=== PATIENT | female | born 1935 | race Caucasian/White ===

== ENCOUNTER 2017-06-06 15:36 | Inpatient (IN) | payer MEDICARE ==
[~2017-06-06] VITALS: Ht 157.5 cm; Wt 74.0 kg
[2017-06-06 17:06] LABS: CALCIUM 8.6 mg/dL (8.5-10.1); CHLORIDE SERUM 100 mmol/L (98-107); CREATININE SERUM 1.1 mg/dL (0.6-1.0); GLUCOSE SERUM 128 mg/dL (74-106); POTASSIUM SERUM 3.5 mmol/L (3.5-5.1); SODIUM SERUM 138 mmol/L (136-145)
[2017-06-06 17:08] LABS: ALKALINE PHOSPHATASE 73 U/L (46-116); ALT/SGPT 126 U/L (14-59); AST/SGOT 167 U/L (15-37); BILIRUBIN TOTAL 0.29 mg/dL (0.20-1.00); HDL CHOLESTEROL 41 mg/dL (40-60); TOTAL PROTEIN, SERUM 7.1 g/dL (6.4-8.2)
[2017-06-06 17:10] LABS: ALBUMIN 3.3 g/dL (3.4-5.0); CHOLESTEROL 106 mg/dL (<200)
[2017-06-06 17:17] LABS: BASOPHIL % 0.5 % (0-2); PLATELET COUNT 211 x10^3mcL (130-400)
[2017-06-06 17:25] LABS: RED CELL DISTRIBUTION WIDTH 14.8 % (11.5-14.5)
[2017-06-06 18:19] LABS: UA SPECIFIC GRAVITY >=1.030 (1.005-1.035); microscopic required? YES; urine erythrocyte NEGATIVE (NEGATIVE)
[2017-06-06] MEDS ORDERED: SYNTHROID0.05 MG PO (19:03)
[2017-06-06] MEDS ORDERED: LOSARTAN POTASS25 M1 PO (19:04)
[2017-06-06] MEDS ORDERED: FELODIPINE10 MG PO (19:04)
[2017-06-06] MEDS ORDERED: HYDROCHLOROTHIA25 MG PO (19:04)
[2017-06-06 19:49] LABS: MAGNESIUM 2.3 mg/dL (1.8-2.4); PHOSPHOROUS 3.6 mg/dL (2.5-4.9)
[2017-06-06 19:52] LABS: CHOLESTEROL/HDL RATIO 2.7
[2017-06-06 19:54] LABS: T3 TOTAL 0.59 ng/mL
[2017-06-06 19:58] LABS: FREE T4 1.26 ng/dL (0.76-1.46); FREE THYROXINE INDEX 3.3 ug/dL (1.4-4.5); T4(THYROXINE) 9.5 ug/dL (4.7-13.3)
[2017-06-06 20:48] VITALS: BP 122/39
[2017-06-06 21:46] VITALS: BP 122/39
[2017-06-07 06:24] VITALS: BP 93/51
[2017-06-07 07:59] LABS: PLATELET COUNT 190 x10^3mcL (130-400)
[2017-06-07 08:12] LABS: CALCIUM 8.2 mg/dL (8.5-10.1); CHLORIDE SERUM 106 mmol/L (98-107); CREATININE SERUM 0.9 mg/dL (0.6-1.0); GLUCOSE SERUM 109 mg/dL (74-106); MAGNESIUM 2.3 mg/dL (1.8-2.4); PHOSPHOROUS 2.9 mg/dL (2.5-4.9); POTASSIUM SERUM 4.1 mmol/L (3.5-5.1); SODIUM SERUM 141 mmol/L (136-145)
[2017-06-07 08:15] LABS: RED CELL DISTRIBUTION WIDTH 15.3 % (11.5-14.5)
[2017-06-07 10:14] VITALS: BP 100/40
[2017-06-07 10:14] LABS: BAND NEUTROPHIL 2 % (0-10); BASOPHIL 0 % (0-2); MONOCYTE 19 % (0-7); SEGMENTED NEUTROPHILS 48 % (37-75)
[2017-06-07 10:16] LABS: rbc morphology (normal/abnorm) ABNORMAL (NORMAL)
[2017-06-07 12:47] VITALS: BP 116/40
[2017-06-07 13:23] VITALS: BP 116/40
[2017-06-07 19:14] VITALS: BP 106/48
[2017-06-07 22:57] VITALS: BP 124/52
[2017-06-08 05:20] VITALS: BP 117/52
[2017-06-08 06:33] LABS: BASOPHIL % 0.8 % (0-2); PLATELET COUNT 194 x10^3mcL (130-400)
[2017-06-08 06:47] LABS: RED CELL DISTRIBUTION WIDTH 15.1 % (11.5-14.5)
[2017-06-08 07:00] LABS: CALCIUM 8.5 mg/dL (8.5-10.1); CARBON DIOXIDE 28.9 mmol/L (21-32); CHLORIDE SERUM 105 mmol/L (98-107); CREATININE SERUM 0.9 mg/dL (0.6-1.0); GLUCOSE SERUM 104 mg/dL (74-106); POTASSIUM SERUM 3.3 mmol/L (3.5-5.1); SODIUM SERUM 142 mmol/L (136-145)
[2017-06-08] MEDS ORDERED: COUGH100 MG/5 M PO (09:21)
[2017-06-08 10:29] VITALS: BP 131/75
[2017-06-08] MEDS ORDERED: ROBCF PO (10:34)
[2017-06-08 11:21] VITALS: BP 131/75
== END 2017-06-08 12:48 | disposition home or self-care (01) | DRG 193 ==
LOC: ED 15:36 → DU 19:07
PROVIDERS: Emergency Medicine; Family Medicine
DX: J09.X2 Influenza due to identified novel influenza A virus with other respiratory manifestations (principal); N17.0 Acute kidney failure with tubular necrosis; D68.69 Other thrombophilia; E44.1 Mild protein-calorie malnutrition; E86.0 Dehydration; E11.65 Type 2 diabetes mellitus with hyperglycemia; R73.03 Prediabetes; R00.1 Bradycardia, unspecified; K76.89 Other specified diseases of liver; R80.9 Proteinuria, unspecified; I10 Essential (primary) hypertension; E89.0 Postprocedural hypothyroidism; Z68.29 Body mass index [BMI] 29.0-29.9, adult
CPT/HCPCS: 82962; 83880; 84439; 87804; J7030; J7613; J7620; Q0092